=== PATIENT | female | born 1965 | race Caucasian/White ===

== ENCOUNTER 2018-05-30 03:47 | Emergency (ER) | payer OTHER ==
[~2018-05-30] VITALS: Ht 157.4 cm
--- NOTE | ~2018-05-30 | EKG ---
[place], [place] ELECTROCARDIOGRAM REPORT NAME: ZACHARY RABAGO UNIT #: [id number] ROOM: DOCTOR: EPIPHANY DRAFT REPORT BIRTHDATE: [birth year] [facility] Test Date: 2018-05-30 Test Time: 04:02:55 Pat Name: ZACHARY RABAGO Department: Room: Gender: F [employer] Operator: [facility] : 1965 Requested By: BRADLEY SILVA Order Number: [id number] Reading MD: Nyla Valera MD Measurements Intervals [place] Rate: 68 P: 56 MO: 134 QRS: 53 QRSD: 95 T: 44 QT: 416 QTc: 443 Interpretive Statements Sinus rhythm Electronically Signed On 05-31-2018 9:16:14 PDT by Nyla Valera MD CM:EKGRPT:ELECTROCARDIOGRAM REPORT [id number] BRADLEY SILVA MD EPIPHANY DRAFT REPORT BRADLEY SILVA MD
--- NOTE | ~2018-05-30 | EKG ---
[place], [place] ELECTROCARDIOGRAM REPORT NAME: ZAHCARY RABAGO UNIT #: [id number] ROOM: DOCTOR: EPIPHANY DRAFT REPORT BIRTHDATE: [birth year] [facility] Test Date: 2018-05-30 Test Time: 06:26:50 Pat Name: ZACHARY RABAGO Department: Room: Gender: F [employer] Worker: Ambreen Holder : 1965 Requested By: BRADLEY SILVA Order Number: [id number] Reading MD: Nyla Valera MD Measurements Intervals [place] Rate: 74 P: 54 MD: 135 QRS: 49 QRSD: 89 T: 37 QT: 430 QTc: 477 Interpretive Statements Sinus rhythm Electronically Signed On 05-31-2018 9:16:35 PDT by Nyla Valera MD CM:EKGRPT:ELECTROCARDIOGRAM REPORT [id number] BRADLEY SILVA MD EPIPHANY DRAFT REPORT BRADLEY SILVA MD
[~2018-05-30 03:47] MED LIST: ZOLOFT25 MG PO
[2018-05-30 04:11] LABS: BASO # 0.1 10*3/uL (0.0-0.1); BASO % 0.9 % (0.0-1.0); EOS # 0.5 10*3/uL (0.0-0.4); EOS % 5.4 % (1.0-4.0); HEMATOCRIT 45.6 % (37.0-47.0); LYMPH # 2.4 10*3/uL (1.3-4.4); LYMPH % 24.8 % (27.0-41.0); MEAN CELL VOLUME 89.1 fl (81.0-99.0); MEAN CORPUSCULAR HGB 29.3 pg (27.0-31.0); MEAN CORPUSCULAR HGB CONC 32.9 g/dl (33.0-37.0); MEAN PLATELET VOLUME 11.2 fl (9.6-12.3); MONO # 0.7 10*3/uL (0.1-1.0); MONO % 6.9 % (3.0-9.0); NEUT # 5.9 10*3/uL (2.3-7.9); NEUT % 61.6 % (47.0-73.0); PLATELET COUNT AUTOMATED 233 10*3/uL (130-400); RED BLOOD COUNT 5.12 10*6/uL (4.10-5.10); RED CELL DISTRI WIDTH 13.4 % (0-14.5); WHITE BLOOD COUNT 9.6 10*3/uL (4.8-10.8)
[2018-05-30 04:22] LABS: ACT PARTIAL THROMBO TIME 27.4 SECONDS (20.8-31.5); INTERNATIONAL NORM RATIO 0.9 (2.0-3.5)
[2018-05-30 04:30] LABS: ALBUMIN 3.7 gm/dl (3.1-4.5); ALKALINE PHOSPHATASE 83 U/L (45-117); BUN 18 mg/dl (7-24); CHLORIDE 106 mmol/L (98-107); CREATININE 0.73 mg/dL (0.55-1.02); SGOT/AST 19 IU/L (3-35); SGPT/ALT 32 U/L (12-78); SODIUM 140 mmol/L (136-145)
[2018-05-30 04:33] LABS: TROPONIN I < 0.015 ng/ml (<0.045)
== END 2018-05-30 08:40 | disposition home or self-care (01) ==
LOC: ED 03:47
PROVIDERS: Emergency Medicine Emergency Medical Services
DX: M54.6 Pain in thoracic spine (principal); M25.511 Pain in right shoulder; M25.512 Pain in left shoulder; F17.200 Nicotine dependence, unspecified, uncomplicated; Z88.0 Allergy status to penicillin; Z79.899 Other long term (current) drug therapy

== ENCOUNTER 2023-03-05 18:47 | Emergency (ER) | payer OTHER ==
[~2023-03-05] VITALS: Ht 157.4 cm; Wt 69.4 kg
== END 2023-03-05 21:36 | disposition home or self-care (01) ==
LOC: ED 18:47
DX: H11.32 Conjunctival hemorrhage, left eye (principal); R51.9 Headache, unspecified; Z88.0 Allergy status to penicillin

== ENCOUNTER 2023-07-11 06:13 | Emergency (ER) | payer OTHER ==
[~2023-07-11] VITALS: Ht 157.4 cm; Wt 63.5 kg
[2023-07-11 06:40] LABS: BASO # 0.1 10*3/uL (0.0-0.1); BASO % 0.9 % (0.0-1.0); EOS # 0.3 10*3/uL (0.0-0.4); HEMATOCRIT 45.9 % (37.0-47.0); LYMPH # 1.2 10*3/uL (1.3-4.4); MEAN CELL VOLUME 89.3 fl (81.0-99.0); MEAN CORPUSCULAR HGB 28.2 pg (27.0-31.0); MEAN CORPUSCULAR HGB CONC 31.6 g/dl (33.0-37.0); MEAN PLATELET VOLUME 10.3 fl (9.6-12.3); MONO # 0.4 10*3/uL (0.1-1.0); MONO % 6.3 % (3.0-9.0); NEUT # 4.8 10*3/uL (2.3-7.9); NEUT % 70.1 % (47.0-73.0); PLATELET COUNT AUTOMATED 261 10*3/uL (130-400); RED BLOOD COUNT 5.14 10*6/uL (4.10-5.10); RED CELL DISTRI WIDTH 13.3 % (0-14.5); WHITE BLOOD COUNT 6.8 10*3/uL (4.8-10.8)
[2023-07-11 07:02] LABS: ALKALINE PHOSPHATASE 81 U/L (46-116); BUN 11 mg/dl (9-23); CHLORIDE 107 mmol/L (98-107); POTASSIUM 4.2 mmol/L (3.4-5.1); SGPT/ALT 19 U/L (5-49); TOTAL PROTEIN 6.3 gm/dL (6.0-8.0)
[2023-07-11] MEDS ORDERED: MELOXICAM15 MG PO (07:40)
== END 2023-07-11 07:45 | disposition home or self-care (01) ==
LOC: ED 06:13
PROVIDERS: Internal Medicine
DX: M54.9 Dorsalgia, unspecified (principal); R68.84 Jaw pain; Z88.0 Allergy status to penicillin

== ENCOUNTER → 2024-09-28 | Outpatient (CLI) | payer OTHER ==
[~2024-09-28] MED LIST changes: +MELOXICAM15 MG PO
== END | disposition home or self-care (01) ==
LOC: RAD 10:09
PROVIDERS: ATTEND Internal Medicine
DX: M47.817 Spondylosis without myelopathy or radiculopathy, lumbosacral region (principal); M47.814 Spondylosis without myelopathy or radiculopathy, thoracic region; F32.1 Major depressive disorder, single episode, moderate; M54.6 Pain in thoracic spine; M54.50 Low back pain, unspecified; M48.07 Spinal stenosis, lumbosacral region